=== PATIENT | male | born 1995 | race Caucasian/White ===

== ENCOUNTER 2020-04-29 10:12 | Emergency (ER) | payer BC, OTHER ==
[~2020-04-29] VITALS: Ht 182.9 cm; Wt 88.0 kg
[2020-04-29] MEDS ORDERED: XANAX1 MG PO (10:20)
[2020-04-29 12:45] VITALS: BP 119/69
== END 2020-04-29 12:47 | disposition home or self-care (01) ==
LOC: ER 10:12
DX: M25.521 Pain in right elbow (principal); M79.602 Pain in left arm; M79.651 Pain in right thigh; R07.89 Other chest pain; T63.441A Toxic effect of venom of bees, accidental (unintentional), initial encounter; F17.210 Nicotine dependence, cigarettes, uncomplicated; Z79.899 Other long term (current) drug therapy; Y92.89 Other specified places as the place of occurrence of the external cause